=== PATIENT | male | born 1970 | race African-American/Black ===

== ENCOUNTER → 2020-09-07 | Outpatient (CLI) | payer OTHER, SELFPAY | LOC: M OUTALCOH 08:45 | PROVIDERS: ATTEND Psychiatry & Neurology Psychiatry | DX: Z03.89 Encounter for observation for other suspected diseases and conditions ruled out (principal) ==

== ENCOUNTER 2024-02-20 21:01 | Emergency (ER) | payer MEDICAID, OTHER, SELFPAY ==
[~2024-02-20] VITALS: Ht 170.2 cm; Wt 71.0 kg
[2024-02-20] MEDS: KETOROLAC 30 MG/ML 1ML VIAL IM ONE (22:23)
[2024-02-20 23:52] VITALS: BP 120/76; TEMP 97; O2SAT 99
== END 2024-02-20 23:59 | disposition home or self-care (01) ==
LOC: M ED 21:01
DX: S70.02XA Contusion of left hip, initial encounter (principal); S70.12XA Contusion of left thigh, initial encounter; S40.022A Contusion of left upper arm, initial encounter; V09.1XXA Pedestrian injured in unspecified nontraffic accident, initial encounter; Z91.018 Allergy to other foods; Z86.79 Personal history of other diseases of the circulatory system; Y92.410 Unspecified street and highway as the place of occurrence of the external cause; Y93.01 Activity, walking, marching and hiking; Y99.9 Unspecified external cause status
CPT/HCPCS: 73080; 73090; 73502; 73552; 96372; 99284; J1885

== ENCOUNTER 2024-10-07 15:58 | Inpatient (IN) | payer MEDICAID, OTHER ==
[~2024-10-07] VITALS: Ht 170.2 cm; Wt 67.0 kg
[2024-10-07 16:35] LABS: BASO # 0.1 10^3/uL (0.0-0.2); BASO % 0.7 % (0.0-1.0); EOS # 0.2 10^3/uL (0.0-0.5); EOS % 2.6 % (0.0-3.0); LYMPH # 1.1 10^3/uL (1.5-5.0); LYMPH % 13.8 % (24.0-44.0); MONO # 0.5 10^3/uL (0.0-0.8); MONO % 6.4 % (2.0-8.0); NEUTROPHILS # 5.7 10^3/uL (1.5-8.5); NEUTROPHILS % 75.4 % (36.0-66.0); PLATELET COUNT, AUTOMATED 280 10^3/uL (150-450)
[2024-10-07 16:46] LABS: ABG BASE EXCESS -0.3 (-2.0-2.0); ABG HCO3 24.2 MMOL/L (22.0-26.0); ABG O2 SATURATION 98.1 % (95.0-99.0); ABG PARTIAL PRESSURE CO2 39.0 mmHg (35.0-45.0); ABG PARTIAL PRESSURE O2 137.9 mmHg (75.0-100.0); ABG STANDARD HCO3 24.3 MMOL/L. (22.0-26.0); ABG TOTAL CO2 25.4 MMOL/L (22.0-29.0); ABG pH (ARTERIAL) 7.410 UNITS (7.350-7.450)
[2024-10-07 16:56] LABS: AMPHETAMINES LEVEL URINE NEGATIVE (NEGATIVE); BARBITURATES URINE NEGATIVE (NEGATIVE)
[2024-10-07 16:57] LABS: BENZODIAZEPINES URINE NEGATIVE (NEGATIVE); CANNABINOIDS URINE NEGATIVE (NEGATIVE); COCAINE METABOLITE URINE NEGATIVE (NEGATIVE); METHADONE URINE NEGATIVE (NEGATIVE); OPIATES URINE NEGATIVE (NEGATIVE); PHENCYCLIDINE URINE NEGATIVE (NEGATIVE)
[2024-10-07 17:00] LABS: ETHYL ALCOHOL (ETHANOL) 0.004 % (0.000-0.010)
[2024-10-07 17:02] LABS: ACETONE/KETONE 0.15 MMOL/L (0.02-0.27); ALT/SGPT 39 U/L (7.0-40); AST/SGOT 72 U/L (<34); CALCIUM LEVEL 8.9 MG/DL (8.5-10.1); CARBON DIOXIDE LEVEL 25 MMOL/L (20-31); CHLORIDE LEVEL 108 MMOL/L (98-107); CK-MB VALUE MASS 8.6 NG/ML (<3.6); CREATININE FOR GFR 0.89 MG/DL (0.70-1.30); GLOMERULAR FILTRATION RATE > 90.0 (>56); POTASSIUM SERUM 5.6 MMOL/L (3.5-5.1); SALICYLATE LEVEL < 3.0 MG/DL (<30); SODIUM LEVEL 144 MMOL/L (136-145)
[2024-10-07 17:09] LABS: LDH LACTATE DEHYDROGENASE 425 U/L (120-246)
[2024-10-07 17:10] LABS: OSMOLALITY SERUM 303 MOSM/KG (275-295)
[2024-10-07] MEDS: CALCIUM GLUCONATE 1,000 MG in DEXTROSE 5% (D5W) MINI-BAG PLU 100 ML IV ONE (17:28)
[2024-10-07] MEDS: HumuLIN R (REGULAR) INSULIN (NovoLIN R) **100 U/ML** PER UNIT IV ONE (17:28)
[2024-10-07] MEDS: DEXTROSE 50% 50 ML SYRINGE IV STA (17:28)
[2024-10-07 17:31] LABS: CPK CREATINE PHOSPHOKINASE 845 U/L (46-171); MB/CK RELATIVE INDEX 1.01 (< OR =4)
[2024-10-07] MEDS: ONDANSETRON 4MG 2ML VIAL IV ONE (17:38)
[2024-10-07] MEDS: SOD POLYSTYRENE SULFONATE SUSP 15GM 60ML UD PO ONE (18:06)
[2024-10-07] MEDS ORDERED: ACETAMINOPHEN 325 MG TAB PO PRN (18:30)
[2024-10-07] MEDS ORDERED: MOM 30 ML SUSPENSION UDC PO PRN (18:30)
[2024-10-07] MEDS ORDERED: MORPHINE 4 MG/ML 1 ML VIAL IV PRN (18:40)
[2024-10-07] MEDS ORDERED: ONDANSETRON 4MG 2ML VIAL IV PRN (18:40)
[2024-10-07] MEDS ORDERED: ACET-897 PO (18:54)
[2024-10-07] MEDS ORDERED: BAYE325T13 PO (18:56)
[2024-10-07] MEDS ORDERED: HOME MED LIST COMPLETE! XX SCH (19:00)
[2024-10-07 20:13] LABS: BASO # 0.1 10^3/uL (0.0-0.2); BASO % 0.7 % (0.0-1.0); EOS # 0.1 10^3/uL (0.0-0.5); EOS % 0.5 % (0.0-3.0); LYMPH # 1.0 10^3/uL (1.5-5.0); LYMPH % 10.8 % (24.0-44.0); MONO # 0.5 10^3/uL (0.0-0.8); MONO % 5.1 % (2.0-8.0); NEUTROPHILS # 7.6 10^3/uL (1.5-8.5); NEUTROPHILS % 82.5 % (36.0-66.0); PLATELET COUNT, AUTOMATED 280 10^3/uL (150-450)
[2024-10-07 20:39] LABS: ALT/SGPT 36 U/L (7.0-40); AST/SGOT 55 U/L (<34); CALCIUM LEVEL 9.4 MG/DL (8.5-10.1); CARBON DIOXIDE LEVEL 28 MMOL/L (20-31); CHLORIDE LEVEL 107 MMOL/L (98-107); CREATININE FOR GFR 0.85 MG/DL (0.70-1.30); GLOMERULAR FILTRATION RATE > 90.0 (>56); POTASSIUM SERUM 4.3 MMOL/L (3.5-5.1); SODIUM LEVEL 144 MMOL/L (136-145)
[2024-10-07] MEDS: DOCUSATE SODIUM 100 MG CAPSULE PO SCH (21:00)
[2024-10-07 21:15] LABS: HEPATITIS C VIRUS ABY INDEX < 0.02 INDEX (<0.8)
[2024-10-07] MEDS: PANTOPRAZOLE 40MG VIAL IV SCH (21:48)
[2024-10-07] MEDS: NS (Normal Saline) 0.9% 1,000 ML IV SCH (21:49)
[2024-10-07] MEDS: SUCRALFATE SUSP 1GM/10ML UD PO SCH (21:54)
[2024-10-08 01:19] VITALS: BP 118/69; TEMP 97.5; O2SAT 96
[2024-10-08 03:36] LABS: BASO # 0.0 10^3/uL (0.0-0.2); BASO % 0.5 % (0.0-1.0); EOS # 0.2 10^3/uL (0.0-0.5); EOS % 2.2 % (0.0-3.0); LYMPH # 2.4 10^3/uL (1.5-5.0); LYMPH % 28.7 % (24.0-44.0); MONO # 0.6 10^3/uL (0.0-0.8); MONO % 7.4 % (2.0-8.0); NEUTROPHILS # 5.2 10^3/uL (1.5-8.5); NEUTROPHILS % 60.7 % (36.0-66.0); PLATELET COUNT, AUTOMATED 225 10^3/uL (150-450)
[2024-10-08 03:56] VITALS: BP 111/66; TEMP 98.1; O2SAT 96
[2024-10-08 04:07] LABS: ALT/SGPT 27 U/L (7.0-40); AST/SGOT 39 U/L (<34); CALCIUM LEVEL 8.4 MG/DL (8.5-10.1); CARBON DIOXIDE LEVEL 28 MMOL/L (20-31); CHLORIDE LEVEL 107 MMOL/L (98-107); CREATININE FOR GFR 0.84 MG/DL (0.70-1.30); GLOMERULAR FILTRATION RATE > 90.0 (>56); POTASSIUM SERUM 3.8 MMOL/L (3.5-5.1); SODIUM LEVEL 143 MMOL/L (136-145)
[2024-10-08 07:51] VITALS: BP 129/73; TEMP 98; O2SAT 98
[2024-10-08] MEDS ORDERED: ENOXAPARIN 40 MG/0.4 ML SYRINGE (J1650 PER 10MG) SC SCH (09:00)
[2024-10-08 09:38] LABS: BASO # 0.0 10^3/uL (0.0-0.2); BASO % 0.4 % (0.0-1.0); EOS # 0.2 10^3/uL (0.0-0.5); EOS % 2.7 % (0.0-3.0); LYMPH # 1.4 10^3/uL (1.5-5.0); LYMPH % 18.1 % (24.0-44.0); MONO # 0.5 10^3/uL (0.0-0.8); MONO % 6.1 % (2.0-8.0); NEUTROPHILS # 5.6 10^3/uL (1.5-8.5); NEUTROPHILS % 72.3 % (36.0-66.0); PLATELET COUNT, AUTOMATED 223 10^3/uL (150-450)
[2024-10-08] MEDS ORDERED: PANT40TA29 PO (09:59)
[2024-10-08] MEDS ORDERED: CARA1TAB6 PO (09:59)
[2024-10-08 10:02] LABS: LDH LACTATE DEHYDROGENASE 192 U/L (120-246)
[2024-10-08 10:03] LABS: ALT/SGPT 29 U/L (7.0-40); AST/SGOT 36 U/L (<34); CALCIUM LEVEL 8.1 MG/DL (8.5-10.1); CARBON DIOXIDE LEVEL 25 MMOL/L (20-31); CHLORIDE LEVEL 105 MMOL/L (98-107); CREATININE FOR GFR 0.83 MG/DL (0.70-1.30); GLOMERULAR FILTRATION RATE > 90.0 (>56); POTASSIUM SERUM 3.9 MMOL/L (3.5-5.1); SODIUM LEVEL 140 MMOL/L (136-145)
== END 2024-10-08 11:16 | disposition home or self-care (01) | DRG 816 ==
LOC: M ED 15:58 → M ED INP 18:36 → M PCU 10-08 01:15
PROVIDERS: ADMIT Internal Medicine; ATTEND Internal Medicine
DX: T52.8X1A Toxic effect of other organic solvents, accidental (unintentional), initial encounter (principal); E27.8 Other specified disorders of adrenal gland; E87.5 Hyperkalemia; Z91.018 Allergy to other foods

== ENCOUNTER 2024-10-11 16:49 | Emergency (ER) | payer OTHER ==
[~2024-10-11 16:49] MED LIST: ACET-897 PO; BAYE325T13 PO; CARA1TAB6 PO; PANT40TA29 PO
[2024-10-11 17:43] LABS: PLATELET COUNT, AUTOMATED 307 10^3/uL (150-450)
[2024-10-11 18:08] LABS: ALT/SGPT 29 U/L (7.0-40); AST/SGOT 48 U/L (<34); CALCIUM LEVEL 9.0 MG/DL (8.5-10.1); CARBON DIOXIDE LEVEL 24 MMOL/L (20-31); CHLORIDE LEVEL 108 MMOL/L (98-107); CREATININE FOR GFR 0.87 MG/DL (0.70-1.30); GLOMERULAR FILTRATION RATE > 90.0 (>56); POTASSIUM SERUM 3.9 MMOL/L (3.5-5.1); SALICYLATE LEVEL < 3.0 MG/DL (<30); SODIUM LEVEL 146 MMOL/L (136-145)
[2024-10-11 18:18] LABS: AMPHETAMINES LEVEL URINE NEGATIVE (NEGATIVE)
[2024-10-11 18:19] LABS: BARBITURATES URINE NEGATIVE (NEGATIVE); BENZODIAZEPINES URINE NEGATIVE (NEGATIVE); CANNABINOIDS URINE NEGATIVE (NEGATIVE); COCAINE METABOLITE URINE NEGATIVE (NEGATIVE); METHADONE URINE NEGATIVE (NEGATIVE); OPIATES URINE NEGATIVE (NEGATIVE); PHENCYCLIDINE URINE NEGATIVE (NEGATIVE)
[2024-10-11 18:22] LABS: ETHYL ALCOHOL (ETHANOL) 0.315 % (0.000-0.010)
[2024-10-12 05:37] VITALS: BP 134/74; TEMP 98; O2SAT 98
== END 2024-10-12 05:50 | disposition home or self-care (01) ==
LOC: M ED 16:49
DX: F10.129 Alcohol abuse with intoxication, unspecified (principal); F43.0 Acute stress reaction; Z91.018 Allergy to other foods

== ENCOUNTER 2024-10-29 11:51 | Emergency (ER) | payer OTHER ==
[~2024-10-29] VITALS: Ht 170.2 cm; Wt 62.1 kg
[2024-10-29 12:49] LABS: BASO # 0.0 10^3/uL (0.0-0.2); BASO % 0.7 % (0.0-1.0); EOS # 0.1 10^3/uL (0.0-0.5); EOS % 2.0 % (0.0-3.0); LYMPH # 1.2 10^3/uL (1.5-5.0); LYMPH % 20.7 % (24.0-44.0); MONO # 0.3 10^3/uL (0.0-0.8); MONO % 6.1 % (2.0-8.0); NEUTROPHILS # 3.9 10^3/uL (1.5-8.5); NEUTROPHILS % 69.8 % (36.0-66.0); PLATELET COUNT, AUTOMATED 295 10^3/uL (150-450)
[2024-10-29 13:22] LABS: CALCIUM LEVEL 9.0 MG/DL (8.5-10.1); CARBON DIOXIDE LEVEL 24 MMOL/L (20-31); CHLORIDE LEVEL 109 MMOL/L (98-107); CREATININE FOR GFR 0.86 MG/DL (0.70-1.30); GLOMERULAR FILTRATION RATE > 90.0 (>56); POTASSIUM SERUM 4.2 MMOL/L (3.5-5.1); SODIUM LEVEL 145 MMOL/L (136-145)
[2024-10-29] MEDS ORDERED: ISOVUE-370 76% 100 ML VIAL As Ordered ONE (14:15)
[2024-10-29 14:27] LABS: CK-MB VALUE MASS 2.4 NG/ML (<3.6); MAGNESIUM LEVEL 2.2 MG/DL (1.8-2.4); PHOSPHORUS LEVEL 4.1 MG/DL (2.5-4.9)
[2024-10-29 14:28] LABS: FREE T4 1.51 NG/DL (0.89-1.76)
[2024-10-29 14:31] LABS: CPK CREATINE PHOSPHOKINASE 322 U/L (46-171); MB/CK RELATIVE INDEX 0.74 (< OR =4)
[2024-10-29] MEDS ORDERED: SUCR1TAB56 PO (14:40)
[2024-10-29] MEDS ORDERED: PANT40TA29 PO (14:40)
[2024-10-29] MEDS ORDERED: HOME MED LIST COMPLETE! XX SCH (14:40)
[2024-10-29 15:04] LABS: CK-MB VALUE MASS 3.1 NG/ML (<3.6)
[2024-10-29 15:07] LABS: CPK CREATINE PHOSPHOKINASE 319 U/L (46-171); MB/CK RELATIVE INDEX 0.97 (< OR =4)
[2024-10-29 15:15] VITALS: TEMP 97.9
[2024-10-29 15:30] VITALS: BP 143/90; O2SAT 99
== END 2024-10-29 15:48 | disposition home or self-care (01) ==
LOC: M ED 11:51
DX: R55 Syncope and collapse (principal); D35.01 Benign neoplasm of right adrenal gland; M51.34 Other intervertebral disc degeneration, thoracic region; M50.322 Other cervical disc degeneration at C5-C6 level; M50.323 Other cervical disc degeneration at C6-C7 level; Z91.018 Allergy to other foods; Z79.1 Long term (current) use of non-steroidal anti-inflammatories (NSAID); Z79.899 Other long term (current) drug therapy
CPT/HCPCS: 36415; 70450; 71260; 72125; 72128; 72131; 74177; 80047; 80048; 82550; 82553; 83735; 84100; 84439; 84443; 84484; 85025; 93005; 93041; 94760; 99285; Q9967